=== PATIENT | male | born 1945 | race African-American/Black ===

== ENCOUNTER 2017-02-11 18:07 | Inpatient (IN) | payer OTHER ==
--- NOTE | ~2017-02-11 | OP ---
Record Of Operation [facility] [address] [place]. [address] NAME: JUANY LOZANO : 43 STATUS : ADM IN PAT#: [id number] AGE: 71 ADM/REG DATE : 02/11/17 MR#: [id number] REPORT SERV DATE: 02/15/17 DICTATED BY: ANIVAL TURNER DATE: 02/14/17 REPORT STATUS : Draft TRANSCRIBED BY: MODL DATE: 02/14/17 DATE OF PROCEDURE: 02/14/2017 SURGEON: Anival Turner DO. PROCEDURES: 1. Ultrasound-guided access of right common femoral artery. 2. Aortogram. 3. Left lower extremity arteriogram with selective catheterization of the popliteal artery. 4. Angioplasty and stent with 7 mm x 120 mm Cordis Smart stent in the right superficial femoral artery. PREOPERATIVE DIAGNOSIS: Nonhealing wound of the left lower extremity. POSTOPERATIVE DIAGNOSES: 1. Nonhealing wound of the left lower extremity. 2. High-grade stenosis of the left mid superficial femoral artery. INDICATIONS FOR PROCEDURE: This is a 71-year-old gentleman who presented with nonhealing wound to the left lower extremity. Vascular Surgery was consulted. Lower extremity duplex demonstrated a high-grade stenosis in the left superficial femoral artery and this was flow limiting, preventing wound healing potential. Recommendation was made for arteriogram and the procedures, risks, benefits, alternatives, and indications were discussed extensively with the patient. All questions were answered. Consent was signed and placed in the chart. DESCRIPTION OF PROCEDURE: On 02/14/2017, the patient was taken to the operating theater and placed in supine position on the operating table. After the uneventful induction of monitored conscious analgesia, the right groin was prepped and draped in the usual sterile fashion. A time-out was performed which identified the patient and proposed procedure to be performed. The entirety of the staff agreed and agreed to the proceed with the operation. Ultrasound was used to interrogate the right common femoral artery. Under direct visualization with ultrasound guidance, it was accessed with a micropuncture needle. Micropuncture wire was advanced. Micropuncture sheath was advanced. Arteriogram was performed of the access site which demonstrated it to be within the common femoral artery, and there were no evidence of hemodynamically significant stenosis. The patient was systemically heparinized and micropuncture sheath was exchanged over a wire for a 5-Citizen Of [place] sheath. Catheter was introduced into the aorta and the aortogram was performed demonstrating a patent bilateral renal arteries, patent aorta, and patent bilateral common and external iliac arterial system. Wire and catheter technique was used to select at the left common and external iliac arterial system. Runoff of the left lower extremity was performed. This demonstrated approximately 20% stenosis of the left common femoral artery. It demonstrated also an 80% stenosis of the left mid superficial femoral artery and a patent popliteal artery without evidence of hemodynamically significant stenosis. Posterior tibial artery and the profunda femoris were widely patent all the way to the foot with no evidence of hemodynamically significant stenosis. There was a chronically occluded anterior tibial Record Of [facility] [address] [facility] [place]. [address] NAME: JUANY LOZANO : 43 STATUS : ADM IN [facility]#: [id number] AGE: 71 ADM/REG DATE : 02/11/17 MR#: [id number] REPORT SERV DATE: 02/15/17 DICTATED BY: ANIVAL TURNER DATE: 02/14/17 REPORT STATUS : Draft TRANSCRIBED BY: DOMI DATE: 02/14/17 artery with no distal reconstitution visualized. Wire was advanced through the superficial femoral artery and catheter was then introduced into the popliteal artery. This allowed magnified views of the tibial arteries. A 5-Citizen Of [place] sheath was exchanged for a 6-Citizen [place] 45 cm sheath. A Cordis Smart 7 mm x 120 mm self-expanding stent was delivered across the high- grade stenosis in the superficial femoral artery. This was angioplastied with a 6 mm x 100 mm [employer] [place] balloon. Completion arteriogram demonstrated excellent flow to the system with no evidence of residual hemodynamically significant stenosis. At this juncture, all wires, catheters, and sheaths were removed. The access site was closed with Angio-Seal. There were no apparent intraoperative complications, and the patient tolerated the procedure well. All counts were correct at the conclusion of the procedure. [facility]/MODL Anival Turner DO / [id number] CC: MD Gina Ware M.D.
--- NOTE | ~2017-02-11 | CN ---
Consultation Report [facility] [address] [place]. [address] NAME: JUANY LOZANO : 43 STATUS : ADM IN PAT#: [id number] AGE: 71 ADM/REG DATE : 02/11/17 MR#: [id number] REPORT SERV DATE: 02/12/17 DICTATED BY: BUSHRA NUNEZ DATE: 02/11/17 REPORT STATUS : Draft TRANSCRIBED BY: MODL DATE: 02/11/17 DATE OF CONSULTATION: 02/11/2017 REASON FOR CONSULTATION: Consulted for preop clearance and postoperative medical management. IDENTIFYING DATA: 1. PCP, Gina Mahan M.D. 2. Infectious Disease, previously, Sylvester Pearce M.D. as well as Bry Lopez M.D. 3. Political Organizer in the past, Martin Garner M.D. 4. Urologist, Josef Dao M.D. HISTORY OF PRESENT ILLNESS: This is a pleasant 71-year-old male, who is admitted by Dr. Martin Thomas for a left foot ulcer to rule out osteo of the left foot. He is possibly going to have a left fifth ray amputation and Achilles lengthening scheduled. The patient has a history of being diabetic type 2. Previous A1c in September 2016 was noted as 13. History of acute kidney injury, neuropathy, hyperlipidemia, hypertension, CVA in the past with expressive aphasia in 2013, for which his symptoms have subsided and he no longer has aphasia as well as open heart surgery, CABG at [facility] in 2012. The patient was previously here in 09/12/2016 for right foot wound and surgical debridement with amputation of his right great toe with Dr. Thomas. The hospitalist group has been consulted to help manage medically the patient's diabetes as well as hypertension and other issues that arise in hospitalization and also to preoperatively clear him for possible surgery. The patient's history was obtained through interview with the patient, with his daughter as well as review of [employer]. PAST MEDICAL HISTORY: 1. Diabetes type 2 with an A1c of 13 in September 2016. 2. Seasonal allergies. 3. Acute kidney injury. 4. Anemia. 5. Hypertension. 6. Hyperlipidemia. 7. Depression. 8. Neuropathy. 9. GERD. 10.Right foot osteo with abscess. 11.Hiatal hernia. 12.Colon polyps. 13.Anxiety. 14.CVA with expressive aphasia in 2013. Expressive aphasia now resolved. 15.The patient noted as a Jehovah Witness for which he received no blood products. HOME MEDICATIONS: 1. Norvasc 10 mg p.o. daily. 2. BuSpar 10 mg p.o. twice a day. Consultation Report [facility] [address] [place]. [address] NAME: JUANY LOZANO : 43 STATUS : ADM IN PAT#: [id number] AGE: 71 ADM/REG DATE : 02/11/17 MR#: [id number] REPORT SERV DATE: 02/12/17 DICTATED BY: BUSHRA NUNEZ DATE: 02/11/17 REPORT STATUS : Draft TRANSCRIBED BY: DOMI DATE: 02/11/17 3. Clindamycin 300 mg p.o. four times a day x10 day. 4. Lexapro 20 mg p.o. daily. 5. Ferrex 150 mg p.o. daily. 6. Lasix 20 mg p.o. daily. 7. Neurontin 300 mg p.o. twice a day. 8. Glucotrol 2.5 mg p.o. before breakfast and supper. 9. Hydralazine 25 mg p.o. every eight hours. 10.NovoLog 10 units subcutaneously daily. 11.Levemir 20 units subcutaneously twice a day. 12.Ativan 0.5 mg p.o. at bedtime p.r.n. needed for sleep. 13.Macrobid 100 mg p.o. daily. 14.Protonix 40 mg p.o. daily. 15.Potassium chloride 10 mEq p.o. twice a day. 16.Seroquel 400 mg p.o. at bedtime. 17.Crestor 20 mg p.o. daily. ALLERGIES: NO KNOWN ALLERGIES. SOCIAL HISTORY: The patient is for 47 years. He lives in a split-level home, actually with his son, his . He states he is in a half-way. He was a former smoker and quit 40 years ago. No alcohol or illicit drug use. He has been getting around his house well he states, but he does have a walker and a wheelchair if needed. FAMILY HISTORY: The patient had 15 siblings. One brother is from having a stroke. One brother is from a heart attack. One sister is and had "heart problems." The patient's mother had a stroke. The patient's father had "vein problems." The patient is a Jehovah Witness and takes no blood products. The patient has four sons and two daughters. One son who presently lives with him has had a CVA in the past. He has two other sons who are diabetic. He has one daughter who is diabetic and the other daughter is considered "pre-diabetic." SURGICAL HISTORY: 1. Surgical debridement and amputation of the first right great toe on 09/13/2016. 2. CABG at [facility] in 2012. 3. Colonoscopy, 09/04/2012. 4. Bilateral interocular lens implants. REVIEW OF SYSTEMS: Negative other than what is included with HPI. The patient is alert and oriented, has no shortness of breath. No nausea or vomiting. No abdominal pain. He has no chest pain. No fever. Displays no confusion or agitation. The patient states he was admitted to the hospital for a wound on his left foot to be taking care of. PHYSICAL EXAMINATION: VITAL SIGNS: From today; blood pressure 150/68, temperature 98.0, heart rate 73, respiratory Consultation Report [address] [address] NAME: JUANY LOZANO : 43 STATUS : ADM IN [facility]#: [id number] AGE: 71 ADM/REG DATE : 02/11/17 MR#: [id number] REPORT SERV DATE: 02/12/17 DICTATED BY: BUSHRA NUNEZ DATE: 02/11/17 REPORT STATUS : Draft TRANSCRIBED BY: MODL DATE: 02/11/17 rate 16. GENERAL: This is a very pleasant, 71-year-old male, who is resting in bed, in no acute distress. His daughter and son-in-law are at bedside. NEURO: His head is atraumatic, normocephalic. He is alert and oriented. His mood is pleasant and appropriate. His cranial nerves are intact. He states he does forget certain things related to his health care and he has difficulty in remembering what medications he is on. NECK: Supple. Trachea is midline. No JVD noted. No obvious thyromegaly or lymphadenopathy. EENT: Sclerae are nonicteric. His pupils are equal and reactive to light. His nares are patent. Mucous membranes moist. Tongue is midline. No deviation. CHEST: No pain with palpation. LUNGS: Clear to auscultation bilaterally. The patient has normal respiratory effort. He has no increased work of breathing with conversation. CARDIOVASCULAR: S1 and S2. No obvious murmurs, rubs, or gallops appreciated. He is on telemetry. He is noted to be in a sinus rhythm with a rate at 76. ABDOMEN: Soft, nontender, has active bowel sounds. No palpable organomegaly. His last bowel movement was on 02/07/2017. EXTREMITIES: The patient has a left foot dressing that is clean, dry, and intact for his left ulcer and wound. He does have slight pedal edema to the right lower extremity and it is noted that he has a right great toe missing that was previously amputated. SKIN: Warm and dry. No unusual rashes or lesions. Normal color and turgor for age. PSYCH: The patient is pleasant, cooperative, appropriate mood and affect at present time. LABORATORY DATA: Sodium 133, potassium 5.1, chloride 96, BUN 22, creatinine 1.65, GFR 47, glucose 394, calcium 8.9, white blood cell 13.2, hemoglobin 11.0, hematocrit 34.0, platelets 281, total bilirubin 0.3, alkaline phosphatase 128, ALT 14, AST 15. He does have a chest x- ray and EKG pending as well as ESR, CRP, PT, PTT and INR, chest x-ray. Dr. Thomas has ordered an MRI of the left foot with x-rays with three-views and a bilateral lower extremity arterial and venous Doppler. He will also have cultures obtained and BNP with a troponin, which are still pending with most of his labs and testing. ASSESSMENT AND PLAN: 1. Diabetes type 2. The patient does have hyperglycemia present. Glucose on lab is 394. He states he monitors his blood sugars two to three times a day and takes a doses of Levemir b.i.d. as well as Glucotrol and a a.m. dose of NovoLog. His past hemoglobin A1c in September 2016 was 13. For now, we will hold his Glucotrol and he can have his Levemir restarted in a.m. if Dr. Thomas does not have him n.p.o. for surgery tomorrow. He is placed on an 1800 ADA diet. He will need a childbirth educator to talk to him regarding diet. His blood sugars have been uncontrolled. We will place him on fingerstick blood sugars a.c. and h.s. with a sliding scale level 2 and the hypoglycemic protocol. We will check hemoglobin A1c in the morning. 2. Hypertension. The patient has previously had open heart surgery in 2012. He will be placed on telemetry and we will add p.r.n. hydralazine as needed for his systolic blood pressure greater 170. We will continue home medications of Norvasc and hydralazine Consultation Report [facility] [address] [place]. [address] NAME: JUANY LOZANO : 43 STATUS : ADM IN [facility]#: [id number] AGE: 71 ADM/REG DATE : 02/11/17 MR#: [id number] REPORT SERV DATE: 02/12/17 DICTATED BY: BUSHRA NUNEZ DATE: 02/11/17 REPORT STATUS : Draft TRANSCRIBED BY: DOMI DATE: 02/11/17 p.o. Right now, his Lasix will be on hold. Pending surgery tomorrow as well as noting a creatinine of 1.65. 3. Acute kidney insufficiency. We will try to avoid nephrotoxic medications. We will place the patient on normal saline at 75 mL an hour. His Lasix will be on hold for now. We will try to hydrate him. He was previously on Macrobid at home and we will hold that due to his kidney function. 4. Left foot ulcer. The patient is admitted for a left foot ulcer by Dr. Martin Thomas to rule out osteo of the left foot, possible surgery with a left fifth ray amputation and Achilles lengthening pending preop clearance. He is admitted per orthopedic physician and ID has been consulted to see him. He does have scheduled MRIs as well as arterial venous Dopplers of that foot and leg to evaluate. 5. Neuropathy. The patient does have diabetic neuropathy. We will continue his Neurontin. 6. Hyperlipidemia. The patient does have a history. We will continue his Crestor. 7. Anxiety and depression. We will continue the patient's BuSpar and Lexapro and his Seroquel. We will decrease the dose to 200 mg at h.s. 8. Gastroesophageal reflux disease and we will continue the patient's daily dose of Protonix. The patient is pending lab work as well as MRIs, x-rays, and additional bilateral lower extremity Dopplers. Antibiotics will be deferred to Infectious Disease, also preop clearance for surgical amputation and Achilles lengthening dependent on pending lab work as well as urinalysis and further orders per orthopedist. The a.m. team will need to evaluate everything and that has been ordered on the patient to clear him for surgery. The hospitalist group would like to thank you for this consultation. Please let us know if we could be of further assistance. KAYE Bushra Nunez NP / [id number] CC: MD Gina Ware M.D.
--- NOTE | ~2017-02-11 | DS ---
Discharge Summary [facility] [address] [place]. [address] NAME: CHARLIE LOZANO : 43 STATUS : DIS IN PAT#: [id number] AGE: 71 ADM/REG DATE : 02/11/17 MR#: [id number] REPORT SERV DATE: 02/21/17 DICTATED BY: MARLENE SIERRA DATE: 02/21/17 REPORT STATUS : Draft TRANSCRIBED BY: MODL DATE: 02/21/17 ADMISSION DATE: 02/11/2017 DISCHARGE DATE: 02/15/2017 DISCHARGE DIAGNOSES: 1. Left foot ulceration. 2. Left foot cellulitis. 3. Left peripheral vascular disease. 4. Diabetes mellitus with neuropathy. HOSPITAL COURSE: Charlie Lozano is a pleasant 71-year-old male who presented to my office on the day of the admission. He had a progressive ulceration on the plantar surface of his left foot underneath the fifth metatarsal head. There was exposed periosteum, large fluid collection, and a foul odor. We admitted the patient to the hospital. We consulted both the Hospitalist for medical management as well as the Infectious Disease doctors. Antibiotics were started. We also asked the wound care nurses to evaluate the patient as well as the vascular surgeons. The patient underwent angiogram with revascularization. Please refer to the vascular surgery notes regarding this procedure. The patient was discharged home on antibiotics per the Infectious Disease team. Medical management was successfully performed throughout the hospitalization by the medical team. Diabetic nurse educator also met with the patient. Vascular surgery recommendations were evaluated and taken into consideration at the time of the discharge. Case management was also involved for discharge planning. Followup visits with Mr. Lozano was made at the [facility]. I also encouraged him to come to my office for continuity of care until he is seen at the [facility]. All of his questions were answered upon discharge. DICTATED BY: MD OMER Ware/DOMI Marlene Sierra MD / [id number] CC: MD Gina Ware M.D.
--- NOTE | ~2017-02-11 | HP ---
History And Physical [facility] [address] [place]. [address] NAME: JUANY LOZANO : 43 STATUS : DIS IN PAT#: [id number] AGE: 71 ADM/REG DATE : 02/11/17 MR#: [id number] REPORT SERV DATE: 03/01/17 DICTATED BY: MARLENE SIERRA DATE: 03/01/17 REPORT STATUS : Draft TRANSCRIBED BY: DOMI DATE: 03/01/17 DATE OF ADMISSION: 02/11/2017 REASON FOR ADMISSION: Left foot cellulitis. HISTORY OF PRESENT ILLNESS: Mr. Lozano is a pleasant 71-year-old, male, who was admitted for a left foot ulcer that had failed outpatient treatment. We discussed surgical intervention, but also wanted to start his IV antibiotics. The patient is a type 2 diabetic. His HbA1c in 09/2016 was noted to be 13. He has a history of acute kidney injury, neuropathy, hyperlipidemia, hypertension, CVA in the past with expressive aphasia with resolution of symptoms. He has had open heart surgery in [place] in 2012. He had a right foot infection with osteomyelitis that resolved with surgical intervention including amputation. Left side was a similar appearance. PAST MEDICAL HISTORY: See above. Type 2 diabetes with neuropathy, seasonal allergies, acute kidney injury, anemia, hypertension, hyperlipidemia, depression, neuropathy, GERD, right foot osteomyelitis, hiatal hernia, colon polyps, anxiety, CVA, Christianity. MEDICATIONS: Norvasc, BuSpar, clindamycin, Lexapro, Ferrex, Lasix, Neurontin, Glucotrol, hydralazine, NovoLog, Levemir, Ativan, Macrobid, Protonix, potassium chloride, Seroquel, Crestor. ALLERGIES: NO KNOWN DRUG ALLERGIES. SOCIAL HISTORY: for 47 years. Lives in a split level home with his son. His in a fdc. Former smoker. Denies alcohol or illicit drug use. FAMILY HISTORY: Fifteen siblings. One brother from a stroke. Another from a heart attack. Another sister with heart problems. Mother had a stroke. Father had vein problems. SURGICAL HISTORY: See above. REVIEW OF SYSTEMS: The patient was in usual state of health at the time of the evaluation. He denies fevers, chills, nausea, vomiting, abdominal pain, shortness of breath, or chest pain. PHYSICAL EXAMINATION: GENERAL: He is awake, alert, and oriented x3. His head is atraumatic. His pupils are equal to light and reactive. HEART: Regular rate. CHEST: Nonlabored breathing. ABDOMEN: Nondistended. EXTREMITIES: Bilateral upper extremities, no tenderness with gentle range of motion. No open skin lesions. Right lower extremity, well-healed surgical incision. Left lower extremity shows a plantar ulcer underneath the fifth metatarsal head. This probes down to History And Physical [address] [address] NAME: JUANY LOZANO : 43 STATUS : DIS IN PAT#: [id number] AGE: 71 ADM/REG DATE : 02/11/17 MR#: [id number] REPORT SERV DATE: 03/01/17 DICTATED BY: MARLENE SIERRA DATE: 03/01/17 REPORT STATUS : Draft TRANSCRIBED BY: MODL DATE: 03/01/17 the periosteum. There was marked edema and erythema surrounding this wound. The erythema extends throughout the foot into the ankle region. Gentle range of motion of the left hip, left knee, left ankle is nontender. No gross purulence. IMAGING DATA: X-rays taken of the left foot shows no evidence of osteomyelitis. LABORATORY DATA: Lab data shows white blood cell count of 13.2. ASSESSMENT: Left foot cellulitis with possible osteomyelitis. PLAN: Lengthy discussion with the patient regarding his diagnosis and treatment options. We will work him up with an MRI with gadolinium. I would also like to perform arterial and venous Doppler exams. We will keep an eye on him. I have asked the hospitalist to follow him as well as the Infectious Disease doctors. Do not hesitate to call me on my cell phone at [phone] with additional questions or concerns. [facility]/MODL Marlene Sierra MD / [id number] CC: MD Gina Ware M.D.
[~2017-02-11 18:07] MED LIST: APRES25 PO; ASAB PO; BUSPAR10 PO; COZAAR100 MG PO; CRESTOR20 MG PO; CYANO1000T PO; FORTAMET1000 MG PO; GARLIC; GLUCOTRO10 PO; GLUCXL5 PO; HALF81 PO; HEMATINIC PL PO; HUMULIN PEN SC; KLOR-CON M2020 MEQ PO; L20 PO; LANTUSCART SC; LEXAPRO20 PO; LOP100 PO; LOP25 PO; MACROBID PO; NEUR300 PO; NORV10 PO; PRAVAC PO; PROTONIX PO; TRAZ50 PO; VITC500 PO; ZOL50 PO; [UNRECOGNIZED DRUG - OTHER]
[2017-02-11 19:32] LABS: BASOPHILS 0.2 %; BASOPHILS ABSOLUTE 0.03 10/3/uL (0.0-0.16); EOSINOPHILS ABSOLUTE 0.27 10/3/uL (0.0-0.53); IMMATURE GRANULOCYTES 0.4 %; IMMATURE GRANULOCYTES ABSOLUTE 0.05 10/3/uL (0.0-0.11); LYMPHOCYTES 14.7 %; LYMPHOCYTES ABSOLUTE 1.95 10/3/uL (0.67-4.30); MANUAL DIFF NO %; MEAN CORPUS HGB CONC 32.4 g/dL (32.0-36.0); MEAN CORPUSCULAR HEMOGLOB 25.3 pg (26.0-34.0); MEAN CORPUSCULAR VOLUME 78.3 fL (80-100); MEAN PLATELET VOLUME 10.3 fL (9.2-13.0); MONOCYTES 8.2 %; MONOCYTES ABSOLUTE 1.09 10/3/uL (0.21-1.20); NEUTROPHILS 74.5 %; NEUTROPHILS ABSOLUTE 9.84 10/3/uL (2.02-8.40); PLATELET COUNT 281 10/3/uL (150-400); RBC DISTRIBUTION WIDTH 17.8 % (12.0-16.0); RED CELL COUNT 4.34 10/6/uL (4.7-6.1); WHITE BLOOD CELLS 13.2 10/3/uL (4.5-10.5)
[2017-02-11 19:45] LABS: CALCIUM, SERUM 8.9 MG/DL (8.5-10.4); CHLORIDE, SERUM 96 MMOL/L (96-112); POTASSIUM, SERUM 5.1 MMOL/L (3.5-5.3); SGOT(AST) 15 U/L (5-40); SGPT(ALT) 14 U/L (5-65); SODIUM, SERUM 133 MMOL/L (135-148); TOTAL BILIRUBIN 0.3 MG/DL (0-1.2); TOTAL PROTEIN 7.7 G/DL (6.0-8.5)
[2017-02-11 19:48] LABS: A/G RATIO 0.8 (0.7-1.9); ALBUMIN 3.3 G/DL (3.5-5.0); ALKALINE PHOSPHATASE 128 U/L (45-117); BUN (BLOOD UREA NITROGEN) 22 MG/DL (6-23); CO2 (CARBON DIOXIDE) 32 MMOL/L (24-34); CREATININE 1.65 MG/DL (0.70-1.30); GFR AFRICAN AMERICAN 47 ML/MIN (>=60); GFR NON AFRICAN AMERICAN 41 ML/MIN (>=60); GLOBULIN 4.4 G/DL (2.5-4.1); GLUCOSE, SERUM 394 MG/DL (60-99)
[2017-02-11 20:03] LABS: C-REACTIVE PROTEIN 39.8 MG/L (<8.0)
[2017-02-11 20:31] LABS: SED RATE 62 MM/HR (0-15)
[2017-02-11] MEDS ORDERED: ATV.5 PO (20:38)
[2017-02-11] MEDS ORDERED: SEROQUEL400 MG PO (20:38)
[2017-02-11] MEDS ORDERED: CLEOCIN300 MG PO (20:39)
[2017-02-11] MEDS ORDERED: BUSPAR10 PO (20:39)
[2017-02-11] MEDS ORDERED: APRES25 PO (20:39)
[2017-02-11] MEDS ORDERED: NEUR300 PO (20:39)
[2017-02-11] MEDS ORDERED: LEXAPRO20 PO (20:40)
[2017-02-11] MEDS ORDERED: FERREX 150150 MG PO (20:40)
[2017-02-11] MEDS ORDERED: L20 PO (20:40)
[2017-02-11] MEDS ORDERED: NORV10 PO (20:40)
[2017-02-11] MEDS ORDERED: KLOR-CON 1010 MEQ PO (20:40)
[2017-02-11] MEDS ORDERED: MACROBID PO (20:40)
[2017-02-11] MEDS ORDERED: NOVOLOG SC (20:40)
[2017-02-11] MEDS ORDERED: GLUCOTROL5 PO (20:41)
[2017-02-11] MEDS ORDERED: PROTONIX PO (20:41)
[2017-02-11] MEDS ORDERED: LEVEMIR SC (20:41)
[2017-02-11] MEDS ORDERED: CRESTOR20 MG PO (20:41)
[2017-02-11 23:38] LABS: TROPONIN I <0.02 NG/ML (<0.05); ULTRASENSITIVE TSH 0.503 MCIU/ML (0.358-3.740)
[2017-02-11 23:39] LABS: B NATRIURETIC PEPTIDE (BNP) 36.4 PG/ML (< 100.0)
[2017-02-12 01:59] LABS: ASCORBIC ACID (UR NOT ORDER) 40 (NEG); BILIRUBIN, URINE NEGATIVE (NEG); KETONE, URINE NEGATIVE (NEG); LEUKOCYTE ESTERASE(NOT OR NEG (NEG); WBC (NOT ORDERED) (RFLEX) 4 (0-5)
[2017-02-12 07:45] LABS: GLYCOHEMOGLOBIN (HbA1c) 13.2 % (4.7-6.1)
[2017-02-13 06:35] LABS: BASOPHILS 0.3 %; BASOPHILS ABSOLUTE 0.03 10/3/uL (0.0-0.16); EOSINOPHILS 3.1 %; EOSINOPHILS ABSOLUTE 0.32 10/3/uL (0.0-0.53); HEMATOCRIT 34.7 % (40.0-51.0); HEMOGLOBIN 11.4 g/dL (13.6-17.8); IMMATURE GRANULOCYTES 0.2 %; IMMATURE GRANULOCYTES ABSOLUTE 0.02 10/3/uL (0.0-0.11); LYMPHOCYTES 20.7 %; LYMPHOCYTES ABSOLUTE 2.15 10/3/uL (0.67-4.30); MEAN CORPUS HGB CONC 32.9 g/dL (32.0-36.0); MEAN CORPUSCULAR HEMOGLOB 25.5 pg (26.0-34.0); MEAN CORPUSCULAR VOLUME 77.6 fL (80-100); MEAN PLATELET VOLUME 10.2 fL (9.2-13.0); MONOCYTES 11.4 %; MONOCYTES ABSOLUTE 1.18 10/3/uL (0.21-1.20); NEUTROPHILS 64.3 %; NEUTROPHILS ABSOLUTE 6.68 10/3/uL (2.02-8.40); PLATELET COUNT 265 10/3/uL (150-400); RBC DISTRIBUTION WIDTH 17.5 % (12.0-16.0); RED CELL COUNT 4.47 10/6/uL (4.7-6.1); WHITE BLOOD CELLS 10.4 10/3/uL (4.5-10.5)
[2017-02-13 06:36] LABS: MANUAL DIFF NO %
[2017-02-13 06:50] LABS: CALCIUM, SERUM 8.7 MG/DL (8.5-10.4); CHLORIDE, SERUM 103 MMOL/L (96-112); CO2 (CARBON DIOXIDE) 29 MMOL/L (24-34); POTASSIUM, SERUM 4.3 MMOL/L (3.5-5.3)
[2017-02-13 06:51] LABS: BUN (BLOOD UREA NITROGEN) 13 MG/DL (6-23); CREATININE 1.06 MG/DL (0.70-1.30); GFR AFRICAN AMERICAN 81 ML/MIN (>=60); GFR NON AFRICAN AMERICAN 70 ML/MIN (>=60); GLUCOSE, SERUM 211 MG/DL (60-99); SODIUM, SERUM 141 MMOL/L (135-148)
[2017-02-14 06:39] LABS: BASOPHILS 0.3 %; BASOPHILS ABSOLUTE 0.03 10/3/uL (0.0-0.16); EOSINOPHILS 2.7 %; EOSINOPHILS ABSOLUTE 0.28 10/3/uL (0.0-0.53); HEMATOCRIT 33.8 % (40.0-51.0); HEMOGLOBIN 11.1 g/dL (13.6-17.8); IMMATURE GRANULOCYTES 0.4 %; IMMATURE GRANULOCYTES ABSOLUTE 0.04 10/3/uL (0.0-0.11); LYMPHOCYTES 23.7 %; MEAN CORPUS HGB CONC 32.8 g/dL (32.0-36.0); MEAN CORPUSCULAR HEMOGLOB 25.8 pg (26.0-34.0); MEAN CORPUSCULAR VOLUME 78.6 fL (80-100); MEAN PLATELET VOLUME 10.3 fL (9.2-13.0); MONOCYTES 10.1 %; MONOCYTES ABSOLUTE 1.06 10/3/uL (0.21-1.20); NEUTROPHILS 62.8 %; NEUTROPHILS ABSOLUTE 6.63 10/3/uL (2.02-8.40); PLATELET COUNT 284 10/3/uL (150-400); RBC DISTRIBUTION WIDTH 17.4 % (12.0-16.0); WHITE BLOOD CELLS 10.5 10/3/uL (4.5-10.5)
[2017-02-14 06:46] LABS: MANUAL DIFF NO %
[2017-02-14 06:53] LABS: BUN (BLOOD UREA NITROGEN) 14 MG/DL (6-23); CALCIUM, SERUM 8.6 MG/DL (8.5-10.4); CHLORIDE, SERUM 106 MMOL/L (96-112); CO2 (CARBON DIOXIDE) 28 MMOL/L (24-34); CREATININE 1.11 MG/DL (0.70-1.30); GFR AFRICAN AMERICAN 76 ML/MIN (>=60); GFR NON AFRICAN AMERICAN 66 ML/MIN (>=60); GLUCOSE, SERUM 182 MG/DL (60-99); PHOSPHORUS, SERUM 3.5 MG/DL (2.5-4.5); SODIUM, SERUM 141 MMOL/L (135-148)
[2017-02-15 04:56] LABS: BASOPHILS 0.7 %; BASOPHILS ABSOLUTE 0.05 10/3/uL (0.0-0.16); EOSINOPHILS 2.7 %; HEMOGLOBIN 11.5 g/dL (13.6-17.8); IMMATURE GRANULOCYTES 0.1 %; IMMATURE GRANULOCYTES ABSOLUTE 0.01 10/3/uL (0.0-0.11); LYMPHOCYTES 28.9 %; LYMPHOCYTES ABSOLUTE 2.15 10/3/uL (0.67-4.30); MEAN CORPUS HGB CONC 32.9 g/dL (32.0-36.0); MEAN CORPUSCULAR HEMOGLOB 26.1 pg (26.0-34.0); MEAN CORPUSCULAR VOLUME 79.4 fL (80-100); MEAN PLATELET VOLUME 10.2 fL (9.2-13.0); MONOCYTES 8.5 %; MONOCYTES ABSOLUTE 0.63 10/3/uL (0.21-1.20); NEUTROPHILS 59.1 %; PLATELET COUNT 285 10/3/uL (150-400); RBC DISTRIBUTION WIDTH 17.2 % (12.0-16.0); RED CELL COUNT 4.41 10/6/uL (4.7-6.1); WHITE BLOOD CELLS 7.4 10/3/uL (4.5-10.5)
[2017-02-15 04:57] LABS: MANUAL DIFF NO %
[2017-02-15 04:59] LABS: BUN (BLOOD UREA NITROGEN) 11 MG/DL (6-23); CALCIUM, SERUM 8.5 MG/DL (8.5-10.4); CHLORIDE, SERUM 105 MMOL/L (96-112); CO2 (CARBON DIOXIDE) 27 MMOL/L (24-34); CREATININE 1.08 MG/DL (0.70-1.30); GFR AFRICAN AMERICAN 79 ML/MIN (>=60); GFR NON AFRICAN AMERICAN 68 ML/MIN (>=60); GLUCOSE, SERUM 215 MG/DL (60-99); PHOSPHORUS, SERUM 2.9 MG/DL (2.5-4.5); POTASSIUM, SERUM 3.7 MMOL/L (3.5-5.3); SODIUM, SERUM 139 MMOL/L (135-148)
[2017-02-15] MEDS ORDERED: ASAB PO ×2 (15:06→18:40)
[2017-02-15] MEDS ORDERED: PLAVIX PO ×2 (15:06→18:42)
[2017-02-15] MEDS ORDERED: LIPITOR80 MG PO ×2 (15:06→18:41)
[2017-02-15] MEDS ORDERED: COREG6 PO ×2 (15:06→18:41)
[2017-02-15] MEDS ORDERED: LEVEMIR SC (15:07)
[2017-02-15] MEDS ORDERED: NOVOLOG SC (15:07)
[2017-02-15] MEDS ORDERED: DURICEF PO (15:08)
== END 2017-02-15 22:51 | disposition home health service (06) | DRG 253 ==
LOC: 4SO 18:07
PROVIDERS: Internal Medicine; Nurse Practitioner Family; Orthopaedic Surgery Foot and Ankle Surgery; Surgery Vascular Surgery
PROC: B41D1ZZ Fluoroscopy of Aorta and Bilateral Lower Extremity Arteries using Low Osmolar Contrast (ICD-10-PCS; principal; 2017-02-14 17:45)
PROC: B44LZZ3 Ultrasonography of Femoral Artery, Intravascular (ICD-10-PCS; principal; 2017-02-14 17:45)
PROC: 047K3DZ Dilation of Right Femoral Artery with Intraluminal Device, Percutaneous Approach (ICD-10-PCS; principal; 2017-02-14 17:45)
DX: E11.51 Type 2 diabetes mellitus with diabetic peripheral angiopathy without gangrene (principal); N17.9 Acute kidney failure, unspecified; E11.21 Type 2 diabetes mellitus with diabetic nephropathy; E11.621 Type 2 diabetes mellitus with foot ulcer; E11.65 Type 2 diabetes mellitus with hyperglycemia; I10 Essential (primary) hypertension; Z86.73 Personal history of transient ischemic attack (TIA), and cerebral infarction without residual deficits; E78.5 Hyperlipidemia, unspecified; F32.9 Major depressive disorder, single episode, unspecified; K44.9 Diaphragmatic hernia without obstruction or gangrene; Z86.010 Personal history of colon polyps; E11.649 Type 2 diabetes mellitus with hypoglycemia without coma; I25.10 Atherosclerotic heart disease of native coronary artery without angina pectoris; Z95.1 Presence of aortocoronary bypass graft; F41.9 Anxiety disorder, unspecified; K21.9 Gastro-esophageal reflux disease without esophagitis; Z79.4 Long term (current) use of insulin; Z79.891 Long term (current) use of opiate analgesic; Z79.84 Long term (current) use of oral hypoglycemic drugs; Z87.891 Personal history of nicotine dependence; Z89.411 Acquired absence of right great toe
CPT/HCPCS: 37226; 71010; 73630-LT; 73720-LT; 75625; 75710; 75774; 80048; 80053; 81001; 82962; 83036; 83735; 83880; 84100; 84443; 84484; 85025; 85652; 86140; 87040; 87070; 87205; 93005; 93923; 93925; 93971; 97161-GP; A9270-GY; A9579; C1725; C1760; C1769; C1876; C1894; J0690; J3010; J3370; Q9967